=== PATIENT | female | born 1950 | race Caucasian/White ===

== ENCOUNTER 2017-08-05 09:33 | Emergency (ER) | payer MEDICARE ==
[~2017-08-05] VITALS: Ht 160 cm; Wt 83.9 kg
[~2017-08-05 09:33] MED LIST: ASPIRIN 81MG TA81 MG PO; BUTRANS10 MCG/HR TD; CRESTOR10 MG PO; CRESTOR5 MG PO; ENTERIC ASPIRI325 MG PO; FLUOXETINE20 MG PO; HYDROCODONE/ACE1 TA5 PO; LEVOTHYROXIN0.075 M1 PO; NAPROSYN 250MG250 MG PO; REQUIP5 MG PO; ZANTAC 7575 MG PO
[2017-08-05] MEDS ORDERED: LISINOPRIL 10MG10 MG PO (09:51)
--- NOTE | 2017-08-05 10:01 | [facility] Report ---
History of Present Issue Date/Time Seen by Provider 08/05/17 0956 Visit Reason Pt arrived:Walked Presenting Problem:RUNNY NOSE FVER CHILLS SNEEZING VOMITING SINCE YESTERDAY AM. Location if Accident: Onset of symptoms date/time:/ or onset unknown for:MEDICAL HX UNKNOWN Have you (or family members/close friends) recently traveled outside the [place]? N If Yes, where/when: Have you had exposure to infectious disease within the past month? TB? Other? Specify: Patient state that she was having vomiting last night, States that she has been feeling really bad, having fever, chills, runny nose, and over all feeling ill. State that she hasn't had any vomiting this morning but now she is also having body aches and flu like symptoms ALLERGIES Coded Allergies: No Known Allergies (08/05/17) Home Medications Reported Medications Rosuvastatin Calcium (Crestor) 10 MG PO DAILY Fluoxetine Hcl (Fluoxetine 20MG) 20 MG PO DAILY Ranitidine Hcl (Zantac 75MG) 150 MG PO BID Levothyroxine Sodium (Levothyroxine 0.075MG) 0.075 MG PO DAILY ROPINIROLE HCL (Requip) 2 MG PO QHS Naproxen (Naprosyn 250MG. Tablet) 500 MG PO QHS Buprenorphine (Butrans) 10 MCG TD WEEKLY Aspirin (Enteric Aspirin) 325 MG PO QHS LISINOPRIL (Lisinopril) 10 MG PO DAILY History Medical History General Angina: No [place]: No Hypertension? No Hyperlipidemia? Yes COPD? No Asthma? No CVA? No Seizures? No Diabetes? No GB Disease: No MRSA? No TB? No Cancer? No Immunization HX DT/Tetanus 1-4 YRS Flu THISFLUSEA Pneumonia REFUSES Surgical Hx Previous Surgery?Y ARTHROSCOPY RIGHT KNEE METAL PLATE IN NECK DISC OUT OF LOWER BACK RIGHT FOOT HYSTERECTOMY RIGHT FINGER Social History Smoking Hx Smoker: Never Smoker Tobacco: No Alcohol Alcohol: No Review of Systems All Other Systems Reviewed and Negative Constitutional chills, fever ENT ear pain, nose congestion, throat pain. Respiratory cough, denies shortness of breath, denies wheezing Gastrointestinal denies abdominal pain, denies diarrhea, nausea, vomiting Physical Exam Vital Signs Vital Signs Date Time Temp Pulse Resp B/P Pulse O2 O2 Flow FiO2 Ox Delivery Rate 08/05 0946 97.9 71 18 148/80 96 General Appearance Patient appears ill, sitting in exam chair Ear, Nose, Throat sinus pain/drainage, nasal congestion, throat red irritated, drainage noted right ear slightly red TM buldging Respiratory Status Yes: trachea midline, chest symmetrical, non tender chest. No: respiratory distress. 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 No Results/Orders Laboratory Tests 08/05/17 0953: Influenza Type A Ag NOT DETECTED, Influenza Type B Ag NOT DETECTED 08/05/17 0950: Group A Strep Screen NOT DETECTED Orders Procedure Date/time Status [facility] STREP SCREEN 08/05 953 Complete UTC FLU A,B 08/05 953 Complete Departure Departure Time of Disposition 1006 Disposition DC Home or Self Care(routine) Clinical Impression Primary Impression: Upper respiratory infection Qualifiers: URI type: unspecified URI Qualified Code: J06.9 - Acute upper respiratory infection, unspecified Condition STABLE Patient Instructions DI for Sinusitis, Sore Throat Additional Instructions * Monitor Temp. Tylenol and/or Ibuprofen as needed. ER if fever is no less than 101 despite alternating Tylenol and Ibuprofen * Encourage fluids, water, Gatorade, powerade, pedialyte if infant/toddler/or child * Warm salt water gargles for throat irritation *Warm fluids *Sore throat lozenges *Sleep elevated *humidifier or vaporizer *Flonase 2 sprays each nostril daily but may take 2-3 days to notice improvement with it Follow up IMMEDIATELY for new or worsening of symptoms OR no noticeable improvement over the next 48-72 hours. 911 immediately for any life threatening symptoms such as chest pain or difficulty breathing Discharge Counseling Counseled pt/family regarding diagnosis, test results, medications/RX, home care, follow up needs Prescriptions Current Visit Scripts Azithromycin (Zithromycin (Z-HALLEY) 250MG Tab) 250 MG PO DAILY #6 TAB TAKE TWO (2) TABLETS ON DAY 1, THEN ONE (1) TABLET DAY #2 THRU #5 Fluticasone Propionate (Flonase 50 Mcg Nasal [place]) 2 SPRAY NA DAILY #1 BOT Methylprednisolone (Medrol Dose Halley) 4 MG PO UD #1 HALLEY TAKE DIRECTED ON PACKAGING Ondansetron (Zofran 4MG Odt) 4 MG PO Q6HP PRN NAUSEA AND VOMITING #10 ODT at 1011
[2017-08-05] MEDS ORDERED: ZITHROMAX Z PA250 MG PO (10:09)
[2017-08-05] MEDS ORDERED: MEDROL 4MG. DOSE4 MG PO (10:09)
[2017-08-05] MEDS ORDERED: FLONASE 50 MCG16 GM (10:09)
[2017-08-05] MEDS ORDERED: ZOFRAN ODT4 MG PO (10:10)
[2017-08-05 10:13] VITALS: BP 148/80
== END 2017-08-05 10:16 | disposition home or self-care (01) ==
LOC: UTC 09:33
DX: J06.9 Acute upper respiratory infection, unspecified (principal); E78.5 Hyperlipidemia, unspecified; Z79.82 Long term (current) use of aspirin